=== PATIENT | male | born 1975 | race Caucasian/White ===

== ENCOUNTER → 2019-06-12 | Outpatient (CLI) | payer BC | LOC: GMAE 12:27 | PROVIDERS: ATTEND Family Medicine | DX: Z00.00 Encounter for general adult medical examination without abnormal findings (principal) ==

== ENCOUNTER → 2020-08-19 | Outpatient (CLI) | payer BC | LOC: GMAE 13:29 | PROVIDERS: ATTEND Family Medicine | DX: Z79.899 Other long term (current) drug therapy (principal); R07.89 Other chest pain; Z13.29 Encounter for screening for other suspected endocrine disorder ==